=== PATIENT | female | born 1965 | race Caucasian/White ===

== ENCOUNTER 2017-07-19 12:11 | Emergency (ER) | END 2017-07-19 12:41 | disposition home or self-care (01) ==

== ENCOUNTER 2018-09-02 10:20 | Emergency (ER) | payer MEDICAID ==
[~2018-09-02] VITALS: Ht 167.6 cm; Wt 79.7 kg
[~2018-09-02 10:20] MED LIST: ACET-1145 PO; ALBU8.5H8 INH; AZIT250T PO; BENZ-6 PO; D-ME473S2 PO
[2018-09-02 10:30] VITALS: BP 138/61; PULSE 86; RESP 20; Ht 167.6 cm; Wt 79.7 kg
[2018-09-02] MEDS ORDERED: D-ME473S2 PO (11:47)
[2018-09-02] MEDS ORDERED: IBUP-1542 PO (11:47)
[2018-09-02] MEDS ORDERED: AZIT250T PO (11:47)
--- NOTE | 2018-09-02 11:53 | ERD ---
ER Documentation Chief Complaint Chief Complaint Complains of bilateral ear pain x 3 days HPI This is a 52-year-old female with a history of diabetes mellitus presents to ED with complaints of cough and bilateral ear pain times 2 weeks. Patient admits to cough, sputum production, runny nose, ear pain and sore throat. Denies fevers, chills, nausea, vomiting, diarrhea, cuts patient, abdominal pain and all other symptoms. No known drug allergies. ROS All systems reviewed and are negative except as per history of present illness. Medications Home Meds Active Scripts Azithromycin* (Zithromax*) 250 Mg Tablet, 250 MG PO .ZPACK DIRECTED, #6 TAB TAKE 500 MG (2 TABS) THE FIRST DAY THEN 250 MG (1 TAB) DAYS 2-5 Prov:WINNIE BUCK PA-C 09/02/18 Ibuprofen* (Motrin*) 600 Mg Tab, 600 MG PO Q6, #30 TAB Prov:WINNIE BUCK PA-C 09/02/18 Dextromethorphan Hb-Promethazine Hcl* (Promethazine DM* Syrup) 473 Ml Syrup, 5 ML PO Q6 PRN for COUGH for 5 Days, ML Prov:WINNIE BUCK PA-C 09/02/18 Albuterol Sulfate* (Proair HFA*) 8.5 Gm Hfa.aer.ad, 2 PUFF INH Q4, #1 INHALER Prov:JOSIAH ESCALERA PA-C 07/19/17 Dextromethorphan Hb-Promethazine Hcl* (Promethazine DM* Syrup) 473 Ml Syrup, 5 ML PO Q6 PRN for COUGH, #4 OZ Prov:JOSIAH ESCALERA PA-C 07/19/17 Benzonatate* (Tessalon Perle*) 100 Mg Capsule, 100 MG PO Q8H PRN for COUGH, #30 CAP Prov:JOSIAH ESCALERA PA-C 07/19/17 Azithromycin* (Zithromax*) 250 Mg Tablet, 250 MG PO .ZPACK DIRECTED, #6 TAB TAKE 500 MG (2 TABS) THE FIRST DAY THEN 250 MG (1 TAB) DAYS 2-5 Prov:JOSIAH ESCALERA PA-C 07/19/17 Acetaminophen-Codeine (Tylenol With Codeine #3 Tablet) 300-30 Mg Tablet, 1 TAB PO Q4H PRN for PAIN, #20 TAB Prov:SOLOMON CLARK MD 08/13/15 Allergies Allergies: Coded Allergies: No Known Allergy (Unverified , 08/13/15) PMhx/Soc Hx Alcohol Use: No Hx Substance Use: No Hx Tobacco Use: No FmHx Family History: diabetes Physical Exam Vitals Vital Signs Date Temp Pulse Resp B/P (MAP) Pulse Ox O2 O2 Flow FiO2 Time Delivery Rate 09/02/18 97.8 86 20 138/61 98 10:30 (86) Physical Exam Physical Exam Vitals signs: Reviewed by me. General: Well developed, well nourished, in no acute distress. Patient is awake and alert. Head: Normocephalic, atraumatic. Eyes: Normal conjunctiva, Pupils PERRLA, EOM intact grossly ENT: Pharynx is clear, Moist mucous membranes, external ears, nose and mouth normal, no tonsillar adenopathy, exudate or erythema, no kissing tonsils, no uvula deviation, tympanic membrane visualized bilaterally no bulging, erythema, purulent air-fluid line seen, nasal mucosa normal with no discharge Neck: Supple, no masses, lymphadenopathy or JVD Respiratory: Clear to auscultation bilaterally with no wheezing, rhonchi, rales, no distress, no labored breathing Cardiovascular: RRR, no murmurs, rubs, or gallops Neurologic: Alert and oriented, moving all extremities, normal speech, no focal weakness, no cerebellar signs. Normal mentation Skin: warm and dry, No rash Psych: Normal mood Procedures/MDM ER COURSE: The patient was stable throughout ED course. I kept the patient and/or family informed of laboratory and diagnostic imaging results throughout the emergency room course. The patient was promptly evaluated and a treatment plan was devised based on H&P and other data. This plan was discussed with the patient who agreed and had no further questions or concerns prior to discharge. MEDICAL DECISION MAKIN-year-old female presents ED with complaints of cough times 2 weeks. Symptoms are most likely consistent with acute bronchitis. Low suspicion for pneumonia, as lung sounds are clear at this time. Oxygen saturation is normal and patient does not have any respiratory distress. Advanced imaging is not indicated at this time. Low suspicion for other cardiopulmonary emergency such as pulmonary embolism, pneumothorax, tension pneumothorax, pleural effusion, pneumothorax, CHF, aortic aneurysm or other cardiopulmonary emergencies. No evidence of sepsis. Patient's vitals are stable he can be managed with close outpatient follow-up. Advised patient to follow-up with primary care in the next 48 hours. Return to ED with any worsening symptoms DISPOSITION PLAN: We discussed follow up with the patient's primary care doctor within 24 to 48 hours. Patient counseled regarding my diagnostic impression and care plan. Prior to discharge all questions answered. Pt agrees with treatment plan and understands strict return precautions. Precautionary instructions provided including instructions to return to the ER if not improving or for any worsening or changing symptoms or concerns. ExitCare instructions provided. Prior to discharge, patients vital signs have been reviewed SPECIALIST FOLLOW UP RECOMMENDED: None Patient has been advised to follow up with primary care in 1-2 days. Disclaimer: Inadvertent spelling and grammatical errors are likely due to EHR/dictation software use and do not reflect on the overall quality of patient care. Also, please note that the electronic time recorded on this note does not necessarily reflect the actual time of the patient encounter. Departure Diagnosis: Primary Impression: Acute bronchitis Bronchitis organism: unspecified organism Qualified Codes: J20.9 - Acute bronchitis, unspecified Condition: Stable Patient Instructions: Bronchitis, Antiobiotic Treatment (Adult) Referrals[facility] Usted se santoro hecho un examen mdico de control que le indica que no est en alysha condicin que requiera tratamiento urgente en el Departamento de Emergencia. Un estudio ms profundo y el tratamiento de rich condicin pueden esperar sin ningn riesgo hasta que usted sea atendida/o en el consultorio de rich mdico o alysha clnica. Es responsabilidad suya arreglar alysha romain para el seguimiento del stuart. MANEJO DE CONDICIONES NO URGENTES EN EL FUTURO 1) Si usted tiene un mdico de atencin primaria: Usted debera llamar a rich mdico de atencin primaria antes de venir al departamento de emergencia. Despus de las horas de consultorio, rich doctor o rich asociado/a est disponible por telfono. El mdico o enfermero de daisha en el servicio telefnico puede asesorarle por riaz medio para atender el problema, o stuart contrario se puede programar alysha romain. 2) Si usted no tiene un mdico de atencin primaria: Llame al mdico o clnica de referencia que aparece abajo maninder las horas de consultorio para hacer alysha romain para que le vean. CLINICAS: [facility] [phone] [facility] [phone] [facility] [phone] [place] [id number] [phone] [facility] [phone] [address] [facility]. [phone] [address] Additional Instructions: Paciente aconseja volver a Departamento de urgencias inmediatamente para sntomas nuevos o que empeoran . Paciente aconseja posteriores con el PCP en 1-2 johns . Paciente verbaliza la comprehensin y est de acuerdo con el tratamiento y el curso de accin. Si el paciente no tiene ninguna de atencin primaria pueden seguir con [facility] [address] [place] [address] o [facility] + [facility] [address] [place] [address] WINNIE BUCK PA-C Sep 02, 2018 11:53
== END 2018-09-02 11:58 | disposition home or self-care (01) ==
LOC: FTE 10:20
DX: J20.9 Acute bronchitis, unspecified (principal); E11.9 Type 2 diabetes mellitus without complications
CPT/HCPCS: 99283

== ENCOUNTER 2019-03-19 10:58 | Emergency (ER) | payer MEDICAID ==
[~2019-03-19] VITALS: Ht 149.9 cm; Wt 79.8 kg
[~2019-03-19 10:58] MED LIST changes: +AMOX250C PO; +GENT30OI2 TOP; +IBUP-1542 PO
[2019-03-19 11:37] VITALS: BP 134/60; PULSE 81; RESP 20; Ht 149.9 cm; Wt 79.8 kg
== END 2019-03-19 13:28 | disposition home or self-care (01) ==
LOC: FTE 10:58
DX: H00.014 Hordeolum externum left upper eyelid (principal)
CPT/HCPCS: 99283